=== PATIENT | male | born 1990 | race Caucasian/White ===

== ENCOUNTER 2016-08-26 20:30 | Emergency (ER) | payer OTHER ==
[~2016-08-26] VITALS: Ht 182.9 cm; Wt 77.1 kg
[2016-08-26 20:31] VITALS: BP 131/60
[2016-08-26] MEDS ORDERED: AUGM875T27 PO (21:43)
[2016-08-26] MEDS ORDERED: AUGMENTIN 875 MG TAB PO ONE (21:45)
== END 2016-08-26 22:13 | disposition home or self-care (01) ==
LOC: M ED 21:46
DX: S61.431A Puncture wound without foreign body of right hand, initial encounter (principal); W54.0XXA Bitten by dog, initial encounter; Y92.139 Unspecified place military base as the place of occurrence of the external cause; Y93.K9 Activity, other involving animal care; Y99.8 Other external cause status